=== PATIENT | female | born 1950 | race Caucasian/White ===

== ENCOUNTER → 2020-11-03 20:33 | Outpatient (CLI) | payer BC ==
[~2020-11-03 20:33] MED LIST: BAYER CHEWABLE81 MG PO; EVISTA60 MG PO; HYDROCHLOROTH12.5 M1 PO; LIVALO2 MG PO; NORVASC5 MG; PRINIVIL20 MG PO; VITAMIN D2000 UNIT PO
== END | disposition home or self-care (01) ==
LOC: D.LABREF 20:33
PROVIDERS: ATTEND Orthopaedic Surgery
DX: M16.11 Unilateral primary osteoarthritis, right hip (principal)